=== PATIENT | female | born 1990 | race Native Hawaiian/Other Pacific Islander ===

== ENCOUNTER 2018-02-11 07:50 | Emergency (ER) | payer BC, OTHER ==
[~2018-02-11] VITALS: Ht 167.6 cm; Wt 99.8 kg
--- NOTE | 2018-02-11 08:15 | NUR ---
Dr Rooney is at bedside doing the MSE.
--- NOTE | 2018-02-11 08:29 | NUR ---
Patient discharged to home in stable conditon & brisk steady gait. Written and verbal after care instructions given to patient. Patient verbalizes understanding of instructions.
== END 2018-02-11 08:31 | disposition home or self-care (01) ==
LOC: ER 07:56
DX: J06.9 Acute upper respiratory infection, unspecified (principal); B97.89 Other viral agents as the cause of diseases classified elsewhere; R42 Dizziness and giddiness
CPT/HCPCS: A4663

== ENCOUNTER 2018-02-25 09:36 | Emergency (ER) | payer BC, OTHER ==
[~2018-02-25] VITALS: Ht 167.6 cm; Wt 99.8 kg
[2018-02-25] MEDS ORDERED: LIDOCAINE 5% PATCH TD ONE ×2 (10:15→10:28)
[2018-02-25] MEDS ORDERED: KETOROLAC TROMETHAMINE 30 MG INJ IM ONE (10:15)
[2018-02-25] MEDS ORDERED: KETOROLAC TROMETHAMINE 30 MG INJ ONE (10:27)
[2018-02-25 10:39] VITALS: BP 141/95
--- NOTE | 2018-02-25 10:41 | NUR ---
Patient discharged to home in stable conditon. Written and verbal after care instructions given. Patient left with steady gait. Patient verbalizes understanding of instructions.
== END 2018-02-25 10:42 | disposition home or self-care (01) ==
LOC: ER 09:36
DX: M54.41 Lumbago with sciatica, right side (principal)
CPT/HCPCS: 96372; 99283; J1885; A4663

== ENCOUNTER 2018-04-04 07:40 | Emergency (ER) | payer BC, OTHER ==
[~2018-04-04] VITALS: Ht 167.6 cm; Wt 104.3 kg
[2018-04-04] MEDS ORDERED: ALBUTEROL SULFATE 2.5 MG/3 ML NEBU NEB ONE (08:30)
[2018-04-04] MEDS ORDERED: ALBUTEROL SULFATE 2.5 MG/3 ML NEBU ONE (08:31)
[2018-04-04] MEDS ORDERED: BENZONATATE 100 MG CAPSULE ONE (08:50)
[2018-04-04] MEDS ORDERED: BENZONATATE 100 MG CAPSULE PO ONE (09:00)
--- NOTE | 2018-04-04 09:06 | NUR ---
PT WAS EVALUATED BY DR BAILEY. PT WAS MEDICATED ACCORDING TO ER MD ORDERS. PT TOLERATED TO MEDIACATION WITHOUT COMPLICATIONS.
--- NOTE | 2018-04-04 09:11 | NUR ---
PT WAS D/C'd TO HOME. D/C INSTRUCTIONS GIVEN TO THE PT.
[2018-04-04 09:13] VITALS: BP 131/78
== END 2018-04-04 09:14 | disposition home or self-care (01) ==
LOC: ER 07:40
DX: J20.8 Acute bronchitis due to other specified organisms (principal); B97.89 Other viral agents as the cause of diseases classified elsewhere
CPT/HCPCS: 94664; A4663